=== PATIENT | male | born 1955 | race Caucasian/White ===

== ENCOUNTER 2022-04-29 18:09 | Emergency (ER) | payer OTHER ==
[2022-04-29 18:17] VITALS: TEMP 97.8; BMI 23.4
[2022-04-29] MEDS ORDERED: SODIUM CHLORIDE 1,000 ML IV SCH (18:30)
[2022-04-29 18:47] LABS: HEMATOCRIT 26.4 % (35.4-49); HEMOGLOBIN 9.1 G/dL (11.7-16.9); MCH 28.2 pg (25.7-33.7); MCHC 34.3 g/dl (32.0-35.9); MEAN CELL VOLUME 82.1 fl (80-96); MEAN PLT VOLUME 7.9 fl (7.5-11.1); PLATELET COUNT 415.9 10^3/uL (134-434); RBC 3.21 10^6/uL (4.00-5.60); RDW 16.8 % (11.9-15.9); WHITE BLOOD COUNT 10.5 10^3/uL (4.0-10.8)
[2022-04-29 18:49] LABS: INR 1.27 (0.83-1.09); PROTHROMBIN TIME (PATIENT) 14.6 SEC (9.7-13.0)
[2022-04-29 18:52] LABS: ACTIVATED PTT 27.5 SECONDS (25.2-36.5)
[2022-04-29 19:07] LABS: ANISOCYTOSIS 1+; PLATELET ESTIMATE ADEQUATE
[2022-04-29] MEDS ORDERED: ALTEPLASE 100 MG/100 ML VIAL IVPB ONE ×2 (19:10→19:18)
[2022-04-29 19:14] LABS: ALBUMIN 2.9 g/dl (3.4-5.0); BILIRUBIN,TOTAL 0.9 mg/dl (0.2-1); CALCIUM 8.8 mg/dl (8.5-10); TOT PROT 6.7 g/dl (6.4-8.2)
[2022-04-29] MEDS ORDERED: ALTEPLASE 100MG 100 ML ONE (19:21)
[2022-04-29] MEDS ORDERED: ALPRAZolam 1 MG TABLET PO PRN (20:46)
[2022-04-29] MEDS ORDERED: ALPRAZolam 0.25 MG TABLET ONE (20:47)
[2022-04-29 23:37] VITALS: PULSE 85
[2022-04-30 00:14] VITALS: BP 115/57
== END 2022-04-30 00:19 | disposition short-term general hospital (02) ==
LOC: FER 18:09
PROC: 3E033GC Introduction of Other Therapeutic Substance into Peripheral Vein, Percutaneous Approach (ICD-10-PCS; principal; 2022-04-29)
DX: R47.01 Aphasia (principal)
CPT/HCPCS: 0241U-QW; 36415; 70450-TC; 70496-TC; 70498-TC; 70544-TC; 70551-TC; 80053; 80061; 82550; 82962; 83036; 84484; 85027; 85610; 85730; 86850; 86900; 86901; 93005; 99285-25; J2997; Q9967